=== PATIENT | female | born 1965 | race Caucasian/White ===

== ENCOUNTER 2023-07-31 00:03 | Inpatient (IN) | payer OTHER, SELFPAY ==
--- NOTE | 2023-07-31 05:39 | PC.ADMIT ---
Pt is a 58 yo female with history of anxiety, depression, alcohol use disorder and HTN, transferred from [facility] in [place], 12B for SI with plan to hang self with belt from her robe. Per crisis report pt had been acting off at home and not eating or drinking. Upon arrival to unit pt is uncooperative, agitated, difficult to engage, not answering questions, responding to internal stimuli, picking at clothing. Pt changed into hospital clothes after much convincing, refused vitals, refused to completely remove own undergarments but allowed them to be shaken out, repeatedly declines food and drink. Pt refused to enter own room, sat in chair by telephones in hooker of unit for entire night, awake, staring at the floor, dialogging. Unable to complete safety tool d/t lack of patient participation.
--- NOTE | 2023-07-31 09:25 | HO.PM.IMCN ---
History of Present Illness Data of Consult Service Date: 07/31/23 Requesting physician: Mathew Navarro Primary Care Provider: Unknown Physician HPI Reason for consult: medical H&P 58-year-old female with history of hypertension, mood disorder, alcohol use disorder admitted to adult Psychiatry from [facility] ED with consult placed to hospitalist service for medical H&P. While in the ED, hematology studies within normal limits. Renal function baseline, electrolyte levels normal. Glucose 99. The patient is not agreeable to interview/exam at this time but there does not appear to be any acute medical issues and she denies any complaints. Review of Systems Review of Systems: Yes Other (unable to obtain due to patient refusal) [facility] Medical History (Updated 07/31/23 @ 11:59 by MICHAEL Real) Alcohol use disorder HTN (hypertension) Social History Household Members: Family Housing: House Patient Tobacco Use Status: Refuse Tobacco use screen Use of substances other than those prescribed or required for medical reasons: Refusing to respond Currently Displaying Signs/Symptoms of Drug Intoxication Withdrawal: No Advance Directives: No Advance Directives Information Provided: No Patient : No Meds Allergies Allergy/AdvReac Type Severity Reaction Status Date / Time No Known Allergies Allergy Verified 07/31/23 00:53 Active Medications: Current Medications Acetaminophen (Acetaminophen 325 Mg Tablet) 650 mg PO Q6H PRN PRN Reason: Headache/Pain Mild Scale (1-3) Al Hydroxide/Mg Hydroxide (Magnesium Hydrox/Alum Hydrox 30 Ml Oral.Susp) 30 ml PO Q6H PRN PRN Reason: Heartburn/Nausea Hydroxyzine HCl (Hydroxyzine Hcl 25 Mg Tablet) 25 mg PO Q6H PRN PRN Reason: Anxiety Magnesium Hydroxide (Milk Of Magnesia 30 Ml Oral.Susp) 30 ml PO DAILY PRN PRN Reason: Constipation Trazodone HCl (Trazodone Hcl 50 Mg Tablet) 50 mg PO BEDTIME MRX1 PRN PRN Reason: Insomnia Home Medications ?Medication ?Instructions ?Recorded ?Confirmed ?Last Taken ?Type amlodipine 5 mg tablet 5 mg PO DAILY 07/31/23 07/31/23 Unknown History escitalopram oxalate 20 mg tablet 20 mg PO QAM 07/31/23 07/31/23 Unknown History risperidone 2 mg tablet 2 mg PO BEDTIME 07/31/23 07/31/23 Unknown History Physical Exam Vital Signs and Narrative: Constitutional - Awake and Alert, No apparent distress Pt refuses remainder of exam Assessment and Plan (1) Routine medical exam: Status: Acute Plan 58-year-old female with history of hypertension, mood disorder, alcohol use disorder admitted to adult Psychiatry from [facility] ED with consult placed to hospitalist service for medical H&P. #Mood disorder/SI -plan per psychiatry #HTN -continue amlodipine #ETOH use disorder -hx obtained from ED report. Unclear pts last etoh use -no obvious symptoms of withdrawal though pt refuses to provide ros Pt refuses interview/exam but there does not appear to be any acute medical issues at this time with available records/reports Thank you for allowing me to participate in this consult. Signing off at this time. Please do not hesitate to call for further questions or for any acute medical issues.
[2023-07-31 20:00] VITALS: RESP 18
--- NOTE | 2023-07-31 20:55 | HO.PSYADMNOT ---
HPI Date of Service: 07/31/23 Chief Complaint: SI Sources of Information: patient interviewed, chart reviewed and crisis/core team assessment reviewed HPI Subjective Notes: Section 12B Narrative: 58 yo patient transferred from [facility] for inpatient psychiatric treatment. Patient refused to meet with this examiner and thus information was obtained from crisis evaluation from [facility] and observation. Patient spent the majority of day shift sitting in a chair in the hallway next to the unit telephones. She looks down and suspiciously stares at people passing in front of her. Information in crisis report is limited and further collateral information from family and providers will be needed. Patient was reportedly dropped off at the ED at [facility] by her sister in law at her mother's request due to acting disorganized and off , not taking her medications and not eating or drinking and unable to care for self. In the ED she was minimally communicative. She appeared to be responding to IS by giggling inappropriately and appearing distracted. She would avoid eye contact or would intensely stare when she did. She reportedly had been hospitalized in the past and has OP treatment. Past Psychiatric History: Prior inpatient psychiatric treatment reported in the [facility] report Medical Evaluation Reviewed: Yes [facility] Medical History (Updated 07/31/23 @ 23:36 by Geoffrey Hope MD) Alcohol use disorder HTN (hypertension) Family History: Unknown Social History: Single. Lives in [place], [place] with her mother. Substance History: Reported ETOH use. Trauma History: Unknown. Meds/Allergies Meds Home Medications ?Medication ?Instructions ?Recorded ?Confirmed ?Type amlodipine 5 mg tablet 5 mg PO DAILY 07/31/23 07/31/23 History escitalopram oxalate 20 mg tablet 20 mg PO QAM 07/31/23 07/31/23 History risperidone 2 mg tablet 2 mg PO BEDTIME 07/31/23 07/31/23 History Allergies Allergies Allergy/AdvReac Type Severity Reaction Status Date / Time No Known Allergies Allergy Verified 07/31/23 00:53 Mental Status Exam Mental Status Exam Patient Appearance: Disheveled, Inappropriate and Unkempt Level of Consciousness: Awake and Alert Patient Behavior: Guarded, Suspicious, Avoidant, Uncooperative and Poor Eye Contact Mood Description: Flat Affect Description: Suspicious Speech Pattern: Impoverished and No Speech Hallucinations: Auditory Delusions: Paranoid Ideation Thought Content: positive for [place] of Content and positive for Thought Blocking Judgement: Poor Assessment & Plan Assessment & Plan (1) Psychosis: Status: Acute Code(s): F29 - Unspecified psychosis not due to a substance or known physiological condition Plan 58 yo female with known past psychiatric history of reported depression and psychosis transferred from [facility] due to worsening symptoms as a result of not taking her medications. On presentation she is presenting with internal preoccupation, is uncooperative and appears to be responding to IS. She is on a section 12b. Plan: - Admit to inpatient psychiatry - CV - Collateral information from family and providers. - Milieu treatment and group therapy. - Medications: restart OP medication - Social work evaluation. - Disposition planning. Patient educated on: other Informed Consent: further education needed Reason for continued inpatient stay Substantial Risk for: inability to function and rapid decompensation Statement Statement: I have reviewed the history and physical and performed a pertinent examination on my patient. No changes have occurred unless specified. If the History and Physical was not performed prior to admission, the Hospitalist's service will be consulted for completing the admission physical. Time Spent With Patient Time: Total time managing care of this patient today ____ minutes.
[2023-08-01 07:12] LABS: Estimated Average Glucose 103 mg/dL; Hemoglobin A1c % 5.2 % (<6.0)
[2023-08-01 07:28] LABS: Alanine Aminotransferase 28 U/L (0-31); Albumin Level 3.7 g/dL (3.5-5.0); Alkaline Phosphatase 71 U/L (39-117); Anion Gap 18 (12-20); Aspartate Amino Transferase 30 U/L (5-31); Bilirubin Total 0.7 mg/dL (0.0-1.0); Blood Urea Nitrogen 19 mg/dL (9-16); Calcium 9.6 mg/dL (8.4-10.2); Carbon Dioxide 23 mmol/L (22-29); Chloride 105 mmol/L (96-108); Cholesterol 267 mg/dL (<200); Estimated Glomerular Filt Rate > 60; Glucose Fasting 66 mg/dL (60-99); HDL Cholesterol 27 mg/dL (>40); LDL Cholesterol Calculated 206 mg/dL (<100); Potassium 3.4 mmol/L (3.3-5.1); Sodium 143 mmol/L (135-145); Total Protein 6.6 g/dL (6.5-8.0); Triglycerides 171 mg/dL (<150)
[2023-08-01 07:42] LABS: Thyroid Stimulating Hormone 0.93 uIU/mL (0.32-4.0)
[2023-08-01 07:56] LABS: Folate 6.6 ng/mL (> or = 4.0); Vitamin B12 463 pg/mL (200-900)
--- NOTE | 2023-08-01 09:19 | HO.PSYCHPN ---
Subjective Subjective Date of Service: 08/01/23 Reason For Visit: SI Interim History: Patient is a bit more communicative today. She is laying in bed. She remains vague about what brought her to the hospital and says I don't know. Everyone has good and bad days. She is guarded and suspicious. She denies AH. She is not interested in medication. She was irritable when discussing medications. Review of Systems Review of Systems Yes Other (unable to obtain due to patient refusal) Mental Status Exam Mental Status Exam Patient Appearance: Disheveled, Inappropriate and Unkempt Level of Consciousness: Awake and Alert Patient Behavior: Guarded, Suspicious, Avoidant, Uncooperative and Poor Eye Contact Mood Description: Flat Affect Description: Suspicious Ability to Follow Directions: Good Speech Pattern: Impoverished Thought Process: Evasive Diagnostics Vital Signs (24Hr): Vital Signs - 24 hr 07/31/23 20:00 Respiratory Rate 18 Labs 08/01/23 06:56 Labs: Laboratory Results - last 48 hr 08/01/23 06:56 Sodium 143 Potassium 3.4 Chloride 105 Carbon Dioxide 23 Anion Gap 18 BUN 19 H Creatinine 0.66 Estim Creat Clear Calc TNP Estimated GFR > 60 Fasting Glucose 66 Estimat Average Glucose 103 Hemoglobin A1c % 5.2 Calcium 9.6 Total Bilirubin 0.7 AST 30 ALT 28 Alkaline Phosphatase 71 Total Protein 6.6 Albumin 3.7 Triglycerides 171 H Cholesterol 267 H LDL Cholesterol, Calc 206 H HDL Cholesterol 27 L Vitamin B12 463 Folate 6.6 TSH 0.93 Medications Medications Current Medications Acetaminophen (Acetaminophen 325 Mg Tablet) 650 mg PO Q6H PRN PRN Reason: Headache/Pain Mild Scale (1-3) Al Hydroxide/Mg Hydroxide (Magnesium Hydrox/Alum Hydrox 30 Ml Oral.Susp) 30 ml PO Q6H PRN PRN Reason: Heartburn/Nausea Amlodipine Besylate (Amlodipine Besylate 5 Mg Tablet) 5 mg PO DAILY [facility]; Protocol Last Admin: 07/31/23 13:27 Dose: Not Given Hydroxyzine HCl (Hydroxyzine Hcl 25 Mg Tablet) 25 mg PO Q6H PRN PRN Reason: Anxiety Magnesium Hydroxide (Milk Of Magnesia 30 Ml Oral.Susp) 30 ml PO DAILY PRN PRN Reason: Constipation Olanzapine (Olanzapine 5 Mg Tablet) 5 mg PO TID PRN PRN Reason: agitation Trazodone HCl (Trazodone Hcl 50 Mg Tablet) 50 mg PO BEDTIME MRX1 PRN PRN Reason: Insomnia Allergies Allergies Allergy/AdvReac Type Severity Reaction Status Date / Time No Known Allergies Allergy Verified 07/31/23 00:53 Assessment & Plan Assessment & Plan (1) Psychosis: Status: Acute Code(s): F29 - Unspecified psychosis not due to a substance or known physiological condition Plan 58 yo female with known past psychiatric history of reported depression and psychosis transferred from [facility] due to worsening symptoms as a result of not taking her medications. On presentation she is presenting with internal preoccupation, is uncooperative and appears to be responding to IS. She is on a section 12b. Plan: - Admit to inpatient psychiatry - CV - Collateral information from family and providers. - Milieu treatment and group therapy. - Medications: restart OP medication - Social work evaluation. - Disposition planning. 07/31: continue current management and treatment plan. Reason for continued inpatient stay Substantial Risk for: inability to function and rapid decompensation Time Spent With Patient Time: Total time managing care of this patient today ____ minutes.
--- NOTE | 2023-08-02 11:55 | P.PNPSI_ITS ---
Subjective Subjective Date of Service: 08/02/23 Reason For Visit: SI Subjective Notes: Section 12B Interim History: Reviewed with Dr. Dang. Keeping to self. Irritable, guarded, vague in responses. She is guarded and suspicious. When asked if she is having any thoughts of self harm, pt began laughing. Per her home medication list, Start: risperidal 2mg PO bedtime Review of Systems Review of Systems Yes Other (unable to obtain due to patient refusal) Mental Status Exam Mental Status Exam Patient Appearance: Disheveled, Inappropriate and Unkempt Level of Consciousness: Awake and Alert Patient Behavior: Guarded, Suspicious, Avoidant, Uncooperative and Poor Eye Contact Mood Description: Flat Affect Description: Suspicious Ability to Follow Directions: Good Speech Pattern: Clear Diagnostics Labs 08/01/23 06:56 Labs: Laboratory Results - last 48 hr 08/01/23 06:56 Sodium 143 Potassium 3.4 Chloride 105 Carbon Dioxide 23 Anion Gap 18 BUN 19 H Creatinine 0.66 Estim Creat Clear Calc TNP Estimated GFR > 60 Fasting Glucose 66 Estimat Average Glucose 103 Hemoglobin A1c % 5.2 Calcium 9.6 Total Bilirubin 0.7 AST 30 ALT 28 Alkaline Phosphatase 71 Total Protein 6.6 Albumin 3.7 Triglycerides 171 H Cholesterol 267 H LDL Cholesterol, Calc 206 H HDL Cholesterol 27 L Vitamin B12 463 Folate 6.6 TSH 0.93 Medications Medications Current Medications Acetaminophen (Acetaminophen 325 Mg Tablet) 650 mg PO Q6H PRN PRN Reason: Headache/Pain Mild Scale (1-3) Al Hydroxide/Mg Hydroxide (Magnesium Hydrox/Alum Hydrox 30 Ml Oral.Susp) 30 ml PO Q6H PRN PRN Reason: Heartburn/Nausea Amlodipine Besylate (Amlodipine Besylate 5 Mg Tablet) 5 mg PO DAILY [facility]; Protocol Last Admin: 08/02/23 11:37 Dose: Not Given Hydroxyzine HCl (Hydroxyzine Hcl 25 Mg Tablet) 25 mg PO Q6H PRN PRN Reason: Anxiety Magnesium Hydroxide (Milk Of Magnesia 30 Ml Oral.Susp) 30 ml PO DAILY PRN PRN Reason: Constipation Olanzapine (Olanzapine 5 Mg Tablet) 5 mg PO TID PRN PRN Reason: agitation Trazodone HCl (Trazodone Hcl 50 Mg Tablet) 50 mg PO BEDTIME MRX1 PRN PRN Reason: Insomnia Allergies Allergies Allergy/AdvReac Type Severity Reaction Status Date / Time No Known Allergies Allergy Verified 07/31/23 00:53 Assessment & Plan Assessment & Plan (1) Psychosis: Status: Acute Code(s): F29 - Unspecified psychosis not due to a substance or known physiological condition Plan 58 yo female with known past psychiatric history of reported depression and psychosis transferred from [facility] due to worsening symptoms as a result of not taking her medications. On presentation she is presenting with internal preoccupation, is uncooperative and appears to be responding to IS. She is on a section 12b. Plan: - Admit to inpatient psychiatry - CV - Collateral information from family and providers. - Milieu treatment and group therapy. - Medications: restart OP medication - Social work evaluation. - Disposition planning. 07/31: continue current management and treatment plan. 08/01: Keeping to self. Irritable, guarded, vague in responses. She is guarded and suspicious. When asked if she is having any thoughts of self harm, pt began laughing. Per her home medication list, Start: risperidal 2mg PO bedtime Patient educated on: medication risk/benefits Informed Consent: further education needed Reason for continued inpatient stay Substantial Risk for: med/psych decompensation Time Spent With Patient Time: Total time managing care of this patient today _20___ minutes.
[2023-08-03 08:56] VITALS: RESP 16
--- NOTE | 2023-08-03 18:03 | HO.PSYCHPN ---
Subjective Subjective Date of Service: 08/03/23 Reason For Visit: SI Subjective Notes: Section 12B (08/04/23) Healthcare Proxy: No Guardianship: No Medical Problems Affecting Mental Status: No Interim History: Pt labile, irritable, dismissive. Refuses to meet with team. Collateral contact with sister in law/team who reports a long history of heavy alcohol use, with some sobriety and periods of catatonia, isolation, no self care, poor appetite, inability to walk, talk, poor memory. Hx of several admissions. Recent loss of urinary continence per sister in law. Long hx of luna, aggression which has decreased as she has aged but is still present. Will offer CV on 08/03. If she refuses, will file Section 7. Medication Compliance: No Side effects from medications: No Attending Groups: No Review of Systems Acute medical concerns: No Medical Review of Systems: unchanged Review of Systems Review of Systems Yes Unobtainable due to mental status Mental Status Exam Mental Status Exam Patient Appearance: Fatigued and Disheveled Patient Orientation: Person Level of Consciousness: Alert Patient Behavior: Guarded, Suspicious, Anxious, Fearful, Resistive to Care, Avoidant, Fatigued, Distractible, Good Eye Contact and Uncooperative Mood Description: Hostile Affect Description: Hostile Patient Cognition Impaired: Yes Ability to Follow Directions: Poor Speech Pattern: Spontaneous Speech Memory Description: Remote Impaired Hallucinations: None Delusions: Paranoid Ideation Perceptual Disturbances: Depersonalization and Derealization Thought Process: Distracted and Rumination Thought Content: positive for [place] and positive for Circumstantial Depressive Symptoms: Increased Irritability Abnormal Motor Activity Signs and Symptoms: Agitation and Restlessness Judgement: Poor Diagnostics Vital Signs (24Hr): Vital Signs - 24 hr 08/03/23 08:56 Respiratory Rate 16 Labs 08/01/23 06:56 Medications Medications Current Medications Acetaminophen (Acetaminophen 325 Mg Tablet) 650 mg PO Q6H PRN PRN Reason: Headache/Pain Mild Scale (1-3) Al Hydroxide/Mg Hydroxide (Magnesium Hydrox/Alum Hydrox 30 Ml Oral.Susp) 30 ml PO Q6H PRN PRN Reason: Heartburn/Nausea Amlodipine Besylate (Amlodipine Besylate 5 Mg Tablet) 5 mg PO DAILY [facility]; Protocol Last Admin: 08/03/23 08:46 Dose: Not Given Hydroxyzine HCl (Hydroxyzine Hcl 25 Mg Tablet) 25 mg PO Q6H PRN PRN Reason: Anxiety Magnesium Hydroxide (Milk Of Magnesia 30 Ml Oral.Susp) 30 ml PO DAILY PRN PRN Reason: Constipation Olanzapine (Olanzapine 5 Mg Tablet) 5 mg PO TID PRN PRN Reason: agitation Risperidone (Risperidone 2 Mg Tablet) 2 mg PO BEDTIME [facility] Last Admin: 08/02/23 21:30 Dose: Not Given Trazodone HCl (Trazodone Hcl 50 Mg Tablet) 50 mg PO BEDTIME MRX1 PRN PRN Reason: Insomnia Allergies Allergies Allergy/AdvReac Type Severity Reaction Status Date / Time No Known Allergies Allergy Verified 07/31/23 00:53 Assessment & Plan Assessment & Plan (1) Psychosis: Status: Acute Code(s): F29 - Unspecified psychosis not due to a substance or known physiological condition Plan 58 yo female with known past psychiatric history of reported depression and psychosis transferred from [facility] due to worsening symptoms as a result of not taking her medications. On presentation she is presenting with internal preoccupation, is uncooperative and appears to be responding to IS. She is on a section 12b. Plan: - Admit to inpatient psychiatry - CV - Collateral information from family and providers. - Milieu treatment and group therapy. - Medications: restart OP medication - Social work evaluation. - Disposition planning. 07/31: continue current management and treatment plan. 08/01: Keeping to self. Irritable, guarded, vague in responses. She is guarded and suspicious. When asked if she is having any thoughts of self harm, pt began laughing. Per her home medication list, Start: risperidal 2mg PO bedtime 08/02: Refusing meds, treatment. 12B ends 08/03. Will plan to file Section 7. Informed Consent: does not understand Reason for continued inpatient stay Substantial Risk for: rapid decompensation Time Spent With Patient Time: Total time managing care of this patient today ____ minutes.
[2023-08-03 20:00] VITALS: RESP 18
[2023-08-04 10:32] VITALS: RESP 18
--- NOTE | 2023-08-04 19:20 | HO.PSYCHPN ---
Subjective Subjective Date of Service: 08/04/23 Reason For Visit: SI Subjective Notes: Section 7 Healthcare Proxy: No Guardianship: No Medical Problems Affecting Mental Status: No Interim History: Section 7 filed. Met with pt and explained process. Pt asked what she could do to avoid court, discussed a treatment plan with returning to her meds, working with team, OK, I will go to court. Angry, irritable, caustic and dismissive, however these sx are lessening as days pass. Medication Compliance: No Side effects from medications: No Attending Groups: No Review of Systems Acute medical concerns: No Medical Review of Systems: unchanged Review of Systems Review of Systems Yes Unobtainable due to mental status Mental Status Exam Mental Status Exam Patient Appearance: Fatigued and Disheveled Patient Orientation: Person Level of Consciousness: Alert Patient Behavior: Guarded, Suspicious, Anxious, Fearful, Resistive to Care, Avoidant, Fatigued, Distractible, Good Eye Contact and Uncooperative Mood Description: Hostile Affect Description: Hostile Patient Cognition Impaired: Yes Ability to Follow Directions: Poor Speech Pattern: Spontaneous Speech Memory Description: Remote Impaired Hallucinations: None Delusions: Paranoid Ideation Perceptual Disturbances: Depersonalization and Derealization Thought Process: Distracted and Rumination Thought Content: positive for [place] and positive for Circumstantial Depressive Symptoms: Increased Irritability Abnormal Motor Activity Signs and Symptoms: Agitation and Restlessness Judgement: Poor Diagnostics Vital Signs (24Hr): Vital Signs - 24 hr 08/03/23 20:00 08/04/23 10:32 Respiratory Rate 18 18 Labs 08/01/23 06:56 Medications Medications Current Medications Acetaminophen (Acetaminophen 325 Mg Tablet) 650 mg PO Q6H PRN PRN Reason: Headache/Pain Mild Scale (1-3) Al Hydroxide/Mg Hydroxide (Magnesium Hydrox/Alum Hydrox 30 Ml Oral.Susp) 30 ml PO Q6H PRN PRN Reason: Heartburn/Nausea Amlodipine Besylate (Amlodipine Besylate 5 Mg Tablet) 5 mg PO DAILY [facility]; Protocol Last Admin: 08/04/23 10:14 Dose: Not Given Hydroxyzine HCl (Hydroxyzine Hcl 25 Mg Tablet) 25 mg PO Q6H PRN PRN Reason: Anxiety Magnesium Hydroxide (Milk Of Magnesia 30 Ml Oral.Susp) 30 ml PO DAILY PRN PRN Reason: Constipation Olanzapine (Olanzapine 5 Mg Tablet) 5 mg PO TID PRN PRN Reason: agitation Risperidone (Risperidone 2 Mg Tablet) 2 mg PO BEDTIME [facility] Last Admin: 08/03/23 20:32 Dose: Not Given Trazodone HCl (Trazodone Hcl 50 Mg Tablet) 50 mg PO BEDTIME MRX1 PRN PRN Reason: Insomnia Allergies Allergies Allergy/AdvReac Type Severity Reaction Status Date / Time No Known Allergies Allergy Verified 07/31/23 00:53 Assessment & Plan Assessment & Plan (1) Psychosis: Status: Acute Code(s): F29 - Unspecified psychosis not due to a substance or known physiological condition Plan 58 yo female with known past psychiatric history of reported depression and psychosis transferred from [facility] due to worsening symptoms as a result of not taking her medications. On presentation she is presenting with internal preoccupation, is uncooperative and appears to be responding to IS. She is on a section 12b. Plan: - Admit to inpatient psychiatry - CV - Collateral information from family and providers. - Milieu treatment and group therapy. - Medications: restart OP medication - Social work evaluation. - Disposition planning. 07/31: continue current management and treatment plan. 08/01: Keeping to self. Irritable, guarded, vague in responses. She is guarded and suspicious. When asked if she is having any thoughts of self harm, pt began laughing. Per her home medication list, Start: risperidal 2mg PO bedtime 08/02: Refusing meds, treatment. 12B ends 08/03. Will plan to file Section 7. 08/04/23: Section 7, refusing treatment currently Informed Consent: further education needed Reason for continued inpatient stay Substantial Risk for: rapid decompensation and med/psych decompensation Time Spent With Patient Time: Total time managing care of this patient today ____ minutes.
[2023-08-04 20:00] VITALS: RESP 18
--- NOTE | 2023-08-05 11:26 | PC.NURSE ---
approached patient with 5mg scheduled amlodipine. I'm not taking that . Pt educated on usse of medicatioon with no effect
--- NOTE | 2023-08-05 18:52 | P.PNPSI_ITS ---
Subjective Subjective Date of Service: 08/05/23 Reason For Visit: SI Subjective Notes: Section 7 Healthcare Proxy: No Guardianship: No Medical Problems Affecting Mental Status: No Interim History: More visable in milieu. Briefly social with staff, peers. Did meet with her social media manager today. Declines to re-start treatment and continues refusal of medications Medication Compliance: No Side effects from medications: No Attending Groups: No Review of Systems Acute medical concerns: No HTN- refusal of care Medical Review of Systems: unchanged Review of Systems Review of Systems Yes Unobtainable due to mental status Mental Status Exam Mental Status Exam Patient Appearance: Fatigued and Disheveled Patient Orientation: Person Level of Consciousness: Alert Patient Behavior: Guarded, Suspicious, Anxious, Fearful, Resistive to Care, Avoidant, Fatigued, Distractible, Good Eye Contact and Uncooperative Mood Description: Hostile Affect Description: Hostile Patient Cognition Impaired: Yes Ability to Follow Directions: Poor Speech Pattern: Spontaneous Speech Memory Description: Remote Impaired Hallucinations: None Delusions: Paranoid Ideation Perceptual Disturbances: Depersonalization and Derealization Thought Process: Distracted and Rumination Thought Content: positive for Mullins and positive for Circumstantial Depressive Symptoms: Increased Irritability Abnormal Motor Activity Signs and Symptoms: Agitation and Restlessness Judgement: Poor Diagnostics Vital Signs (24Hr): Vital Signs - 24 hr 08/04/23 20:00 Respiratory Rate 18 Labs 08/01/23 06:56 Medications Medications Current Medications Acetaminophen (Acetaminophen 325 Mg Tablet) 650 mg PO Q6H PRN PRN Reason: Headache/Pain Mild Scale (1-3) Al Hydroxide/Mg Hydroxide (Magnesium Hydrox/Alum Hydrox 30 Ml Oral.Susp) 30 ml PO Q6H PRN PRN Reason: Heartburn/Nausea Amlodipine Besylate (Amlodipine Besylate 5 Mg Tablet) 5 mg PO DAILY [facility]; Protocol Last Admin: 08/05/23 11:21 Dose: Not Given Hydroxyzine HCl (Hydroxyzine Hcl 25 Mg Tablet) 25 mg PO Q6H PRN PRN Reason: Anxiety Magnesium Hydroxide (Milk Of Magnesia 30 Ml Oral.Susp) 30 ml PO DAILY PRN PRN Reason: Constipation Olanzapine (Olanzapine 5 Mg Tablet) 5 mg PO TID PRN PRN Reason: agitation Risperidone (Risperidone 2 Mg Tablet) 2 mg PO BEDTIME [facility] Last Admin: 08/04/23 21:42 Dose: Not Given Trazodone HCl (Trazodone Hcl 50 Mg Tablet) 50 mg PO BEDTIME MRX1 PRN PRN Reason: Insomnia Allergies Allergies Allergy/AdvReac Type Severity Reaction Status Date / Time No Known Allergies Allergy Verified 07/31/23 00:53 Assessment & Plan Assessment & Plan (1) Psychosis: Status: Acute Code(s): F29 - Unspecified psychosis not due to a substance or known physiological condition Plan 58 yo female with known past psychiatric history of reported depression and psychosis transferred from [facility] due to worsening symptoms as a result of not taking her medications. On presentation she is presenting with internal preoccupation, is uncooperative and appears to be responding to IS. She is on a section 12b. Plan: - Admit to inpatient psychiatry - CV - Collateral information from family and providers. - Milieu treatment and group therapy. - Medications: restart OP medication - Social work evaluation. - Disposition planning. 07/31: continue current management and treatment plan. 08/01: Keeping to self. Irritable, guarded, vague in responses. She is guarded and suspicious. When asked if she is having any thoughts of self harm, pt began laughing. Per her home medication list, Start: risperidal 2mg PO bedtime 08/02: Refusing meds, treatment. 12B ends 08/03. Will plan to file Section 7. 08/05/23: Continue to offer care/treatment, attempt alliance Reason for continued inpatient stay Substantial Risk for: rapid decompensation Time Spent With Patient Time: Total time managing care of this patient today ____ minutes.
--- NOTE | 2023-08-06 15:03 | HO.PSYCHPN ---
Subjective Subjective Date of Service: 08/06/23 Reason For Visit: SI Subjective Notes: Section 7 Healthcare Proxy: No Guardianship: No Medical Problems Affecting Mental Status: No Interim History: Pt is more visable, interactive today. Smicy, says sourav, declines to meet. Question if she is scanning the door to attempt to elope or interested in milieu activity. Team has spoken with mother who will not testify for court hearing. Mother would like to have pt return home. Paranoia evident at times, avoidant of most interaction with team, however is talking with her social media strategist. Medication Compliance: No Side effects from medications: No Attending Groups: No Review of Systems Acute medical concerns: No Medical Review of Systems: unchanged Review of Systems Review of Systems Yes Unobtainable due to mental status Mental Status Exam Mental Status Exam Patient Appearance: Fatigued and Disheveled Patient Orientation: Person Level of Consciousness: Alert Patient Behavior: Guarded, Suspicious, Anxious, Fearful, Resistive to Care, Avoidant, Fatigued, Distractible, Good Eye Contact and Uncooperative Mood Description: Hostile Affect Description: Hostile Patient Cognition Impaired: Yes Ability to Follow Directions: Poor Speech Pattern: Spontaneous Speech Memory Description: Remote Impaired Hallucinations: None Delusions: Paranoid Ideation Perceptual Disturbances: Depersonalization and Derealization Thought Process: Distracted and Rumination Thought Content: positive for Rankin and positive for Circumstantial Depressive Symptoms: Increased Irritability Abnormal Motor Activity Signs and Symptoms: Agitation and Restlessness Judgement: Poor Diagnostics Labs 08/01/23 06:56 Medications Medications Current Medications Acetaminophen (Acetaminophen 325 Mg Tablet) 650 mg PO Q6H PRN PRN Reason: Headache/Pain Mild Scale (1-3) Al Hydroxide/Mg Hydroxide (Magnesium Hydrox/Alum Hydrox 30 Ml Oral.Susp) 30 ml PO Q6H PRN PRN Reason: Heartburn/Nausea Amlodipine Besylate (Amlodipine Besylate 5 Mg Tablet) 5 mg PO DAILY [facility]; Protocol Last Admin: 08/06/23 14:45 Dose: Not Given Hydroxyzine HCl (Hydroxyzine Hcl 25 Mg Tablet) 25 mg PO Q6H PRN PRN Reason: Anxiety Magnesium Hydroxide (Milk Of Magnesia 30 Ml Oral.Susp) 30 ml PO DAILY PRN PRN Reason: Constipation Olanzapine (Olanzapine 5 Mg Tablet) 5 mg PO TID PRN PRN Reason: agitation Risperidone (Risperidone 2 Mg Tablet) 2 mg PO BEDTIME [facility] Last Admin: 08/05/23 22:33 Dose: Not Given Trazodone HCl (Trazodone Hcl 50 Mg Tablet) 50 mg PO BEDTIME MRX1 PRN PRN Reason: Insomnia Allergies Allergies Allergy/AdvReac Type Severity Reaction Status Date / Time No Known Allergies Allergy Verified 07/31/23 00:53 Assessment & Plan Assessment & Plan (1) Psychosis: Status: Acute Code(s): F29 - Unspecified psychosis not due to a substance or known physiological condition Plan 58 yo female with known past psychiatric history of reported depression and psychosis transferred from [facility] due to worsening symptoms as a result of not taking her medications. On presentation she is presenting with internal preoccupation, is uncooperative and appears to be responding to IS. She is on a section 12b. Plan: - Admit to inpatient psychiatry - CV - Collateral information from family and providers. - Milieu treatment and group therapy. - Medications: restart OP medication - Social work evaluation. - Disposition planning. 07/31: continue current management and treatment plan. 08/01: Keeping to self. Irritable, guarded, vague in responses. She is guarded and suspicious. When asked if she is having any thoughts of self harm, pt began laughing. Per her home medication list, Start: risperidal 2mg PO bedtime 08/02: Refusing meds, treatment. 12B ends 08/03. Will plan to file Section 7. 08/05/23: Continue to offer care/treatment, attempt alliance 08/06/23: Continue to offer treatment, attempt alliance. Reason for continued inpatient stay Substantial Risk for: rapid decompensation Time Spent With Patient Time: Total time managing care of this patient today ____ minutes.
[2023-08-06 20:00] VITALS: BP 155/97; PULSE 96; RESP 18; TEMP 36.6; O2SAT 97
--- NOTE | 2023-08-07 15:30 | P.PNPSI_ITS ---
Subjective Subjective Date of Service: 08/07/23 Reason For Visit: SI Subjective Notes: Section 7 Interim History: met with patient. Discussed with Nursing. Refused to engage with marketing underwriter and clearly irritable and paranoid. Refusing medications. Section 7 Review of Systems Review of Systems Yes Unobtainable due to mental status Mental Status Exam Mental Status Exam Narrative: irritable. Guarded and paranoid. Poor self-care. Refusing to engage. Unable to formally evaluate SI or HI. Diagnostics Vital Signs (24Hr): Vital Signs - 24 hr 08/06/23 20:00 Temperature 97.9 F Pulse Rate 96 Respiratory Rate 18 Blood Pressure 155/97 H Pulse Oximetry 97 Oxygen Delivery Method Room Air Labs 08/01/23 06:56 Medications Medications Current Medications Acetaminophen (Acetaminophen 325 Mg Tablet) 650 mg PO Q6H PRN PRN Reason: Headache/Pain Mild Scale (1-3) Al Hydroxide/Mg Hydroxide (Magnesium Hydrox/Alum Hydrox 30 Ml Oral.Susp) 30 ml PO Q6H PRN PRN Reason: Heartburn/Nausea Amlodipine Besylate (Amlodipine Besylate 5 Mg Tablet) 5 mg PO DAILY [facility]; Protocol Last Admin: 08/07/23 10:39 Dose: Not Given Hydroxyzine HCl (Hydroxyzine Hcl 25 Mg Tablet) 25 mg PO Q6H PRN PRN Reason: Anxiety Magnesium Hydroxide (Milk Of Magnesia 30 Ml Oral.Susp) 30 ml PO DAILY PRN PRN Reason: Constipation Olanzapine (Olanzapine 5 Mg Tablet) 5 mg PO TID PRN PRN Reason: agitation Risperidone (Risperidone 2 Mg Tablet) 2 mg PO BEDTIME [facility] Last Admin: 08/06/23 22:17 Dose: Not Given Trazodone HCl (Trazodone Hcl 50 Mg Tablet) 50 mg PO BEDTIME MRX1 PRN PRN Reason: Insomnia Allergies Allergies Allergy/AdvReac Type Severity Reaction Status Date / Time No Known Allergies Allergy Verified 07/31/23 00:53 Assessment & Plan Assessment & Plan (1) Psychosis: Status: Acute Code(s): F29 - Unspecified psychosis not due to a substance or known physiological condition Plan 58 yo female with known past psychiatric history of reported depression and psychosis transferred from [facility] due to worsening symptoms as a result of not taking her medications. On presentation she is presenting with internal preoccupation, is uncooperative and appears to be responding to IS. She is on a section 12b. Plan: - Admit to inpatient psychiatry - CV - Collateral information from family and providers. - Milieu treatment and group therapy. - Medications: restart OP medication - Social work evaluation. - Disposition planning. 07/31: continue current management and treatment plan. 08/01: Keeping to self. Irritable, guarded, vague in responses. She is guarded and suspicious. When asked if she is having any thoughts of self harm, pt began laughing. Per her home medication list, Start: risperidal 2mg PO bedtime 08/02: Refusing meds, treatment. 12B ends 08/03. Will plan to file Section 7. 08/05/23: Continue to offer care/treatment, attempt alliance 08/06/23: Continue to offer treatment, attempt alliance. 08/07/2023: Sections [address], continues to decline medications Reason for continued inpatient stay Substantial Risk for: inability to function Time Spent With Patient Time: Total time managing care of this patient today ____ minutes.
--- NOTE | 2023-08-08 10:40 | P.PNPSI_ITS ---
Subjective Subjective Date of Service: 08/08/23 Reason For Visit: SI Interim History: Attempted to meet with patient. Discussed with Nursing. Refused to engage with keno writer / runner Not today, I know exactly who you are . Irritable and paranoid. Refusing medications. Section 7 Review of Systems Review of Systems Yes Unobtainable due to mental status Mental Status Exam Mental Status Exam Narrative: irritable. Guarded and paranoid. Poor self-care. Refused to engage with keno writer / runner Not today, I know exactly who you are . Unable to formally evaluate SI or HI. Diagnostics Labs 08/01/23 06:56 Medications Medications Current Medications Acetaminophen (Acetaminophen 325 Mg Tablet) 650 mg PO Q6H PRN PRN Reason: Headache/Pain Mild Scale (1-3) Al Hydroxide/Mg Hydroxide (Magnesium Hydrox/Alum Hydrox 30 Ml Oral.Susp) 30 ml PO Q6H PRN PRN Reason: Heartburn/Nausea Amlodipine Besylate (Amlodipine Besylate 5 Mg Tablet) 5 mg PO DAILY [facility]; Protocol Last Admin: 08/08/23 09:09 Dose: Not Given Hydroxyzine HCl (Hydroxyzine Hcl 25 Mg Tablet) 25 mg PO Q6H PRN PRN Reason: Anxiety Magnesium Hydroxide (Milk Of Magnesia 30 Ml Oral.Susp) 30 ml PO DAILY PRN PRN Reason: Constipation Olanzapine (Olanzapine 5 Mg Tablet) 5 mg PO TID PRN PRN Reason: agitation Risperidone (Risperidone 2 Mg Tablet) 2 mg PO BEDTIME [facility] Last Admin: 08/07/23 22:53 Dose: Not Given Trazodone HCl (Trazodone Hcl 50 Mg Tablet) 50 mg PO BEDTIME MRX1 PRN PRN Reason: Insomnia Allergies Allergies Allergy/AdvReac Type Severity Reaction Status Date / Time No Known Allergies Allergy Verified 07/31/23 00:53 Assessment & Plan Assessment & Plan (1) Psychosis: Status: Acute Code(s): F29 - Unspecified psychosis not due to a substance or known physiological condition Plan 58 yo female with known past psychiatric history of reported depression and psychosis transferred from [facility] due to worsening symptoms as a result of not taking her medications. On presentation she is presenting with internal preoccupation, is uncooperative and appears to be responding to IS. She is on a section 12b. Plan: - Admit to inpatient psychiatry - CV - Collateral information from family and providers. - Milieu treatment and group therapy. - Medications: restart OP medication - Social work evaluation. - Disposition planning. 07/31: continue current management and treatment plan. 08/01: Keeping to self. Irritable, guarded, vague in responses. She is guarded and suspicious. When asked if she is having any thoughts of self harm, pt began laughing. Per her home medication list, Start: risperidal 2mg PO bedtime 08/02: Refusing meds, treatment. 12B ends 08/03. Will plan to file Section 7. 08/05/23: Continue to offer care/treatment, attempt alliance 08/06/23: Continue to offer treatment, attempt alliance. 08/08/2023: Sections [address], continues to decline medications Reason for continued inpatient stay Substantial Risk for: inability to function Time Spent With Patient Time: Total time managing care of this patient today ____ minutes.
[2023-08-09 08:00] VITALS: RESP 16
--- NOTE | 2023-08-09 10:15 | HO.PSYCHPN ---
Subjective Subjective Date of Service: 08/09/23 Reason For Visit: SI Subjective Notes: Section 7 Healthcare Proxy: No Guardianship: No Medical Problems Affecting Mental Status: No Interim History: Section 7. Pt continues to refuse treatment, medications. Team report she became angry this a.m. and urinated in her room. She is visable in the milieu and interactive with peers and team, superficially. She declines to meet with tw. Family continues to decline to testify in court regarding her symptoms at home and reason for admission. Medication Compliance: No Side effects from medications: No Attending Groups: No Review of Systems Acute medical concerns: No Medical Review of Systems: unchanged Review of Systems Review of Systems Yes Unobtainable due to mental status Mental Status Exam Mental Status Exam Narrative: Denies all symptoms. Refuses to meet with tw today. Diagnostics Labs 08/01/23 06:56 Medications Medications Current Medications Acetaminophen (Acetaminophen 325 Mg Tablet) 650 mg PO Q6H PRN PRN Reason: Headache/Pain Mild Scale (1-3) Al Hydroxide/Mg Hydroxide (Magnesium Hydrox/Alum Hydrox 30 Ml Oral.Susp) 30 ml PO Q6H PRN PRN Reason: Heartburn/Nausea Amlodipine Besylate (Amlodipine Besylate 5 Mg Tablet) 5 mg PO DAILY [facility]; Protocol Last Admin: 08/08/23 09:09 Dose: Not Given Hydroxyzine HCl (Hydroxyzine Hcl 25 Mg Tablet) 25 mg PO Q6H PRN PRN Reason: Anxiety Magnesium Hydroxide (Milk Of Magnesia 30 Ml Oral.Susp) 30 ml PO DAILY PRN PRN Reason: Constipation Olanzapine (Olanzapine 5 Mg Tablet) 5 mg PO TID PRN PRN Reason: agitation Risperidone (Risperidone 2 Mg Tablet) 2 mg PO BEDTIME [facility] Last Admin: 08/08/23 21:49 Dose: Not Given Trazodone HCl (Trazodone Hcl 50 Mg Tablet) 50 mg PO BEDTIME MRX1 PRN PRN Reason: Insomnia Allergies Allergies Allergy/AdvReac Type Severity Reaction Status Date / Time No Known Allergies Allergy Verified 07/31/23 00:53 Assessment & Plan Assessment & Plan (1) Psychosis: Status: Acute Code(s): F29 - Unspecified psychosis not due to a substance or known physiological condition Plan 58 yo female with known past psychiatric history of reported depression and psychosis transferred from [facility] due to worsening symptoms as a result of not taking her medications. On presentation she is presenting with internal preoccupation, is uncooperative and appears to be responding to IS. She is on a section 12b. Plan: - Admit to inpatient psychiatry - CV - Collateral information from family and providers. - Milieu treatment and group therapy. - Medications: restart OP medication - Social work evaluation. - Disposition planning. 07/31: continue current management and treatment plan. 08/01: Keeping to self. Irritable, guarded, vague in responses. She is guarded and suspicious. When asked if she is having any thoughts of self harm, pt began laughing. Per her home medication list, Start: risperidal 2mg PO bedtime 08/02: Refusing meds, treatment. 12B ends 08/03. Will plan to file Section 7. 08/05/23: Continue to offer care/treatment, attempt alliance 08/06/23: Continue to offer treatment, attempt alliance. 08/08/2023: Sections [address], continues to decline medications 08/09/23: Section 7, declines treatment, contact. Family will not testify in court to help pt obtain treatment. Reason for continued inpatient stay Substantial Risk for: rapid decompensation Time Spent With Patient Time: Total time managing care of this patient today ____ minutes.
--- NOTE | 2023-08-10 10:02 | P.DS_ITS ---
DS: Providers Provider Date of Service: 08/10/23 Date of admission: 07/31/23 00:03 Date of discharge: 08/10/23 Primary care physician: Unknown Physician Admitting clinician: Geoffrey Hope Attending physician on admission: Geoffrey Hope Consults: 07/31/23 00:53 Consult to Hospitalist Routine Comment: Consulting Provider: Hospitalist Reason For Exam: medical H&P Attending physician on discharge: Marvel Dang Discharging clinician: Etta Yarbrough DS: Diagnosis Discharge Diagnosis (1) Psychosis: Status: Acute DS: Medications Discharge Medications Home Medications: Home Medications ?Medication ?Instructions ?Recorded ?Confirmed amlodipine 5 mg tablet 5 mg PO DAILY 07/31/23 07/31/23 Mental Status Exam Mental Status Exam Narrative: Denies all symptoms. Refuses to meet with tw today. DS: Summary Hospital Course Hospital Course: Admission to adult psychiatry for exacerbation of psychosis. Pt is not known to [facility], family report a long, severe history of alcohol use disorder. Pt has been sober for one month to prepare for daughter's wedding. Pt refused to participate in any form of treatment during admission. She refused medications. She was non violent, in control and interacted minimally with the staff. She refused all provider contact, stating, I know who you are and I will not say a word to you. Section VII was filed. Mother and [id number], who initiated this intervention, declined to participate in informing the court of their concerns that led them to pt's admission. As a result, pt was discharged to return home to mother today. Status at Discharge Functional status at discharge: independent ambulation Overall status at discharge: patient is back to baseline Time Spent with Patient Time attestation: Total time managing care of this patient today ____ minutes. Time spent: Less than 30 minutes Discharge Plan Discharge Anticipated Discharge Date/Time: 08/10/23 12:00 Patient Disposition: Home, Self-Care Discharge Diagnosis: Alcohol Use Disorder, Severe, Dependence Psychosis Discharge Medications: Continued amlodipine 5 mg tablet 5 mg PO DAILY Discontinued risperidone 2 mg tablet 2 mg PO BEDTIME escitalopram oxalate 20 mg tablet 20 mg PO QAM Discharge Orders: Discharge Order (Routine); Ordered 08/10/23 Ordered By: Etta Yarbrough Diet: Advance to usual diet Activity on Discharge: As tolerated Stand Alone Forms: Patient Portal Discharge page, Community Support Print Language: Turkmen Care Plan Goals: Mood and Behavioral Stabilization Sobriety Health Concerns: Mood and Behavioral Stabilization Sobriety Plan of Treatment: Bel refuses all treatment. Family supports pt's refusal of treatment Assessment: Pt is discharged from a Section Seven filing. Family reported significant concerns about advanced alcoholism and psychosis, however, refused to contribute their input and observations to help the court make a decision regarding treatment. Pt has been quiet, isolative and non participatory on the unit. She has exhibited no behavioral dyscontrol, no endangering behavioral symptoms, no imminent risk of harm to self or others. She has not engaged in any behaviors that suggest dangerousness to self or others and has demonstrated impulse control She declines all treatment She has been observed closely by nursing and unit staff throughout admission Discharge Date/Time: 08/10/23 10:47
== END 2023-08-10 10:47 | disposition home or self-care (01) | DRG 751 ==
PROVIDERS: Admitting Provider Social Worker; Visit Provider Clinical Nurse Specialist Psychiatric/Mental Health, Adult
DX: F29 Unspecified psychosis not due to a substance or known physiological condition (principal); R45.851 Suicidal ideations; I10 Essential (primary) hypertension; F10.20 Alcohol dependence, uncomplicated; Z79.899 Other long term (current) drug therapy
CPT/HCPCS: 36415; 80053; 80061; 82607; 82746; 83036; 84443

== ENCOUNTER → 2023-07-31 00:03 | Outpatient (BNV) | payer OTHER, SELFPAY | PROVIDERS: Admitting Provider Social Worker; Visit Provider Physician Assistant | DX: Z02.2 Encounter for examination for admission to residential institution (principal) | CPT/HCPCS: 99429 ==

== ENCOUNTER → 2023-07-31 00:03 | Outpatient (BNV) | payer OTHER, SELFPAY | PROVIDERS: Admitting Provider Social Worker; Visit Provider Psychiatry & Neurology Psychiatry | DX: F29 Unspecified psychosis not due to a substance or known physiological condition (principal) | CPT/HCPCS: 90792; 99231; 99232; 99238 ==